=== PATIENT | male | born 1985 | race Caucasian/White ===

== ENCOUNTER 2022-05-04 15:27 | Outpatient (CLI) | payer BC, SELFPAY ==
--- NOTE | 2022-05-04 15:30 | MR_ITS ---
[address] [address] Phone:?[phone] Fax:?[phone] Referring Physician Information: Lloyd Drake M.D. [id number] [facility] [address] Phone:?[phone] Fax:?[phone] Patient:Andrey Nagel D.O.B:?1985 Sex:?Male Phone:?[phone] [facility] MRN:?[id number] Exam Date:?05/04/2022 ? EXAM: MRI of the RIGHT KNEE, without contrast CLINICAL HISTORY: Right knee pain. Concern for medial meniscal tear. COMPARISONS: None available. TECHNICAL: MR sequences of the right knee: sagittals: PD, PDFS coronals: PD, STIR axials: PD, T2 FS CONTRAST: None SEDATION: None FINDINGS: Bones: No fracture, bone marrow contusion, or other suspicious bone marrow signal abnormality. Patellofemoral joint: Cartilage: Intact. Retinacula: The medial and lateral retinacula are intact. Fat pads: The infrapatellar, quadriceps, and prefemoral fat pads are unremarkable. Knee joint: Effusion: Physiologic amount of joint fluid. Popliteal cyst: Tiny popliteal cyst. Intra-articular bodies: None. Medial compartment: Medial meniscus: 2-3 mm of medial meniscal extrusion best seen on coronal series 7 image 18. Mild ill-definition of the posterior root of the medial meniscus may reflect fraying/mucoid degeneration, contusion, and or ill-defined partial tearing although the finding is equivocal and not well evaluated because of substantial artifact in this location. Cartilage: Intact. Lateral compartment: Lateral meniscus: Intact. Cartilage: Intact. Ligaments: Anterior cruciate ligament: Intact. Posterior cruciate ligament: Intact. Medial collateral ligament: Ill-definition of the proximal and mid portions of the superficial component and of the deep meniscofemoral component of the medial collateral ligament. Posterior oblique ligament: Intact. Fibular collateral ligament: Intact. Posterolateral corner: The distal biceps femoris tendon, iliotibial band, popliteus tendon, popliteus muscle, popliteofibular ligament, and arcuate ligament are intact. Posteromedial corner: The semimembranosus and pes anserine tendons are intact. Extensor mechanism: Patellar tendon: Intact. Quadriceps tendon: Intact, without tendinopathy. IMPRESSION: 1. Ill-definition of the proximal and mid portions of the superficial component of the medial collateral ligament and ill-definition of the deep meniscofemoral component of the medial collateral ligament are findings consistent with sequelae of age-indeterminate moderate grade partial tear injury. 2. 2-3 mm of medial meniscal extrusion. Mild ill-definition of the posterior root of the medial meniscus may reflect fraying/mucoid degeneration, contusion, and or ill-defined partial tearing although the finding is equivocal and not well evaluated because of substantial artifact in this location. 3. Tiny popliteal cyst. 4. No lateral meniscal, tendinous, or chondral pathology of the right knee. RCB Electronically signed on 05/05/2022 8:08:00 AM by Vineet Sahu M.D.
== END 2022-05-04 15:28 | disposition home or self-care (01) ==
LOC: MRI 15:27
PROVIDERS: PCP Family Medicine; Visit Provider Orthopaedic Surgery Sports Medicine
DX: M25.561 Pain in right knee (principal); S83.411A Sprain of medial collateral ligament of right knee, initial encounter; S83.241A Other tear of medial meniscus, current injury, right knee, initial encounter
CPT/HCPCS: 73721